=== PATIENT | male | born 1980 | race Caucasian/White ===

== ENCOUNTER 2020-02-09 13:21 | Inpatient (IN) | payer SELFPAY ==
[~2020-02-09] VITALS: Ht 175.3 cm; Wt 84.8 kg
[~2020-02-09 13:21] MED LIST: PHEN100C PO
[2020-02-09] MEDS ORDERED: IV NORMAL SALINE 1,000ML 1,000 ML IV ONE ×3 (13:30→15:15)
[2020-02-09 13:49] LABS: BASO # 0.1 x10^3/uL (0.0-0.2); BASO % 1 % (0-3); EOS # 0.1 x10^3/uL (0.0-0.7); EOS % 1 % (0-3); HEMATOCRIT 47.6 % (39.0-53.0); HEMOGLOBIN 16.4 g/dL (13.0-17.5); LYMPH # 3.2 x10^3/uL (1.0-4.8); LYMPH % 31 % (24-48); MEAN CORPUSCULAR HEMOGLOBIN 32 pg (25-35); MEAN CORPUSCULAR HGB CONC 35 g/dL (31-37); MEAN CORPUSCULAR VOLUME 91 fL (79-100); MONO # 0.9 x10^3/uL (0.0-1.1); MONO % 8 % (0-9); NEUT # 6.1 x10^3uL (1.8-7.7); NEUT % 59 % (31-73); PLATELET COUNT 208 x10^3/uL (140-400); RED BLOOD COUNT 5.22 x10^6/uL (4.30-5.70); RED CELL DISTRIBUTION WIDTH 13.3 % (11.5-14.5); WHITE BLOOD COUNT 10.3 x10^3/uL (4.0-11.0)
[2020-02-09 14:05] LABS: CALCIUM 9.2 mg/dL (8.5-10.1); CREATININE 1.2 mg/dL (0.7-1.3); GFR 67.8
[2020-02-09 14:07] LABS: BILIRUBIN,URINE NEG (NEG); CLARITY,URINE CLOUDY; COLOR,URINE YELLOW; GLUCOSE,URINE NEG (NEG)
[2020-02-09 14:08] LABS: AMORPHOUS SEDIMENT,UR PRESENT /HPF; BACTERIA,URINE 0 /HPF (0-FEW); NITRITE,URINE NEG (NEG); RBC,URINE 0 /HPF (0-2); SQUAMOUS EPITHELIAL CELL,UR FEW /LPF
[2020-02-09 14:15] LABS: ALBUMIN 4.2 g/dL (3.4-5.0); ALBUMIN/GLOBULIN RATIO 1.4 (1.0-1.7); TOTAL BILIRUBIN 1.7 mg/dL (0.2-1.0); TOTAL PROTEIN 7.1 g/dL (6.4-8.2)
[2020-02-09] MEDS ORDERED: ONDANSETRON PF 4 MG/2 ML VIAL. IVP ONE ×2 (14:30→15:00)
[2020-02-09] MEDS ORDERED: FAMOTIDINE 20 MG/2 ML VIAL IVP ONE (14:30)
--- NOTE | 2020-02-09 14:40 | EKG ---
[address] [address] Test Date: 2020-02-09 Test Time: 13:45:19 Pat Name: AURE BOYLE Department: Room: Gender: M Boat Motor Mechanic: : 1980 Requested By: GARRETT RICHARD Order Number: [id number] Reading MD: Joaquim Campbell Measurements Intervals [place] Rate: 69 P: 51 OK: 142 QRS: 44 QRSD: 90 T: 33 QT: 352 QTc: 378 Interpretive Statements SINUS RHYTHM NONSPECIFIC ST-T WAVE CHANGES. Electronically Signed On 02-09-2020 16:52:30 CDT by Joaquim Campbell
[2020-02-09 14:47] LABS: AMPHETAMINE/METHAMPHETAMINE NEG (NEG); BARBITURATES NEG (NEG); BENZODIAZEPINES NEG (NEG); CANNABINOIDS POS (NEG); COCAINE NEG (NEG); METHADONE NEG (NEG); OPIATES NEG (NEG); PHENCYCLIDINE NEG (NEG)
--- NOTE | 2020-02-09 14:55 | PHYS DOC ---
Past History Past Medical History: Anxiety, Bipolar, Seizure, Other Additional Past Medical Histor: Hep-C Past Surgical History: Cholecystectomy Smoking: Cigarettes Alcohol Use: None Drug Use: Marijuana General Adult EDM: Chief Complaint: SYNCOPE HPI: HPI: 39-year-old male presents with report of generalized malaise and episode of passing out upon arrival to the ER. Patient reports recent history of abdominal pain with associated nausea, vomiting, and diarrhea for which he was worked up at [facility] in [place]. Patient reports he was diagnosed with "irritable bowel syndrome ". Patient reports today he was in [place] for a "job "and has been working outside in the heat all day. Patient reports he thinks he is dehydrated. Denies fever or chills. Denies known sick contacts. Denies chest pain or shortness of breath. Denies known exposure to COVID-19. Review of Systems: Review of Systems: Constitutional: Denies fever or chills; reports malaise Eyes: Denies redness or eye pain HENT: Denies nasal congestion or sore throat Respiratory: Denies cough or shortness of breath Cardiovascular: Denies chest pain or palpitations GI: Reports abdominal pain, nausea, vomiting, and diarrhea : Denies dysuria or hematuria Musculoskeletal: Denies back pain or joint pain Integument: Denies rash or skin lesions Neurologic: Denies headache, focal weakness or sensory changes; reports syncopal episode Complete systems were reviewed and found to be within normal limits, except as documented in this note. Current Medications: Current Meds: Current Medications Medications (Trade) Dose Ordered Sig/Caroline Start Time Stop Time Status Last Admin Dose Admin Famotidine (Pepcid Vial) 20 mg 1X ONCE 02/09/20 14:30 02/09/20 14:31 DC 02/09/20 14:24 20 MG Ondansetron HCl (Zofran) 4 mg 1X ONCE 02/09/20 14:30 02/09/20 14:31 DC 02/09/20 14:24 4 MG Sodium Chloride 1,000 ml @ 1,000 mls/hr 1X ONCE 02/09/20 14:30 02/09/20 15:29 02/09/20 14:24 1,000 MLS/HR Allergies: Allergies: Allergies Coded Allergies Type Severity Reaction Last Updated Verified Penicillins Allergy Intermediate unknown 02/19/14 No Physical Exam: PE: Constitutional: Well developed, well nourished, no acute distress, non-toxic appearance HENT: Normocephalic, atraumatic, oropharynx dry Eyes: PERRL, EOMI, conjunctiva normal, no discharge, no horizontal nystagmus Neck: Normal range of motion, no cervical tenderness, supple Cardiovascular: Heart rate normal, regular rhythm Lungs & Thorax: Bilateral breath sounds clear to auscultation, no wheezing Abdomen: Soft, diffuse tenderness, no guarding/rebound tenderness Skin: Warm, dry, no erythema, no rash Back: No tenderness, no CVA tenderness Extremities: No tenderness, ROM intact, no edema Neurologic: Alert and oriented X 3, normal motor function, normal sensory function, no focal deficits noted Psychologic: Affect normal, judgment normal Current Patient Data: Labs: Laboratory Tests Test 02/09/20 13:14 02/09/20 13:33 Urine Collection Type Unknown Urine Color Yellow Urine Clarity Cloudy Urine pH 8.0 Urine Specific [place] 1.020 Urine Protein Neg (NEG-TRACE) Urine Glucose (UA) Neg mg/dL (NEG) Urine Ketones (Stick) 15 mg/dL (NEG) Urine Blood Neg (NEG) Urine Nitrite Neg (NEG) Urine Bilirubin Neg (NEG) Urine Urobilinogen Dipstick 2.0 mg/dL (0.2 mg/dL) Urine Leukocyte Esterase Neg (NEG) Urine RBC 0 /HPF (0-2) Urine WBC 1-4 /HPF (0-4) Urine Squamous Epithelial Cells Few /LPF Urine Amorphous Sediment Present /HPF Urine Bacteria 0 /HPF (0-FEW) Urine Mucus Slight /LPF Urine Opiates Screen Neg (NEG) Urine Methadone Screen Neg (NEG) Urine Barbiturates Neg (NEG) Urine Phencyclidine Screen Neg (NEG) Urine Amphetamine/Methamphetamine Neg (NEG) Urine Benzodiazepines Screen Neg (NEG) Urine Cocaine Screen Neg (NEG) Urine Cannabinoids Screen Pos (NEG) Urine Ethyl Alcohol Neg (NEG) White Blood Count 10.3 x10^3/uL (4.0-11.0) Red Blood Count 5.22 x10^6/uL (4.30-5.70) Hemoglobin 16.4 g/dL (13.0-17.5) Hematocrit 47.6 % (39.0-53.0) Mean Corpuscular Volume 91 fL (79-100) Mean Corpuscular Hemoglobin 32 pg (25-35) Mean Corpuscular Hemoglobin Concent 35 g/dL (31-37) Red Cell Distribution Width 13.3 % (11.5-14.5) Platelet Count 208 x10^3/uL (140-400) Neutrophils (%) (Auto) 59 % (31-73) Lymphocytes (%) (Auto) 31 % (24-48) Monocytes (%) (Auto) 8 % (0-9) Eosinophils (%) (Auto) 1 % (0-3) Basophils (%) (Auto) 1 % (0-3) Neutrophils # (Auto) 6.1 x10^3uL (1.8-7.7) Lymphocytes # (Auto) 3.2 x10^3/uL (1.0-4.8) Monocytes # (Auto) 0.9 x10^3/uL (0.0-1.1) Eosinophils # (Auto) 0.1 x10^3/uL (0.0-0.7) Basophils # (Auto) 0.1 x10^3/uL (0.0-0.2) Sodium Level 141 mmol/L (136-145) Potassium Level 4.0 mmol/L (3.5-5.1) Chloride Level 103 mmol/L (98-107) Carbon Dioxide Level 27 mmol/L (21-32) Anion Gap 11 (6-14) Blood Urea Nitrogen 14 mg/dL (8-26) Creatinine 1.2 mg/dL (0.7-1.3) Estimated GFR (Cockcroft-Gault) 67.8 BUN/Creatinine Ratio 12 (6-20) Glucose Level 94 mg/dL (70-99) Calcium Level 9.2 mg/dL (8.5-10.1) Magnesium Level 2.0 mg/dL (1.8-2.4) Total Bilirubin 1.7 mg/dL (0.2-1.0) H Aspartate Amino Transferase (AST) 49 U/L (15-37) H Alanine Aminotransferase (ALT) 165 U/L (16-63) H Alkaline Phosphatase 82 U/L (46-116) Creatine Kinase 155 U/L (39-308) Creatine Kinase MB (Mass) 1.6 ng/mL (0.0-3.6) Creatine Kinase MB Relative Index 1.0 % (0-4) Troponin I Quantitative < 0.017 ng/mL (0-0.055) Total Protein 7.1 g/dL (6.4-8.2) Albumin 4.2 g/dL (3.4-5.0) Albumin/Globulin Ratio 1.4 (1.0-1.7) Ethyl Alcohol Level < 10 mg/dL (0-10) Vital Signs: Vital Signs Date Time Temp Pulse Resp B/P (MAP) Pulse Ox O2 Delivery O2 Flow Rate FiO2 02/09/20 13:35 99.0 64 16 176/114 (134) 100 Room Air EKG: EKG: @1345 NSR 69bpm, NO ST elevation, QRS 90ms, QT/QTc 352/378ms, prominent t waves in precordial leads. Radiology/Procedures: Radiology/Procedures: PROCEDURE: CT HEAD AND CERVICAL SPINE [facility] Compliance Statement: One or more of the following individualized dose reduction techniques were utilized for this examination: 1. Automated exposure control 2. Adjustment of the mA and/or kV according to patient size 3. Use of iterative reconstruction technique CT HEAD AND CERVICAL SPINE WITHOUT CONTRAST History: Reason: syncope, head trauma, pain / Spl. Instructions: / History: Comparison: None. Procedure: Axial images are obtained of the head from the skull base through the vertex without IV contrast. Noncontrast helical CT of the cervical spine was performed. Axial, sagittal, and coronal reconstructions were obtained. Findings: The ventricles and sulci are normal for the patient's age. No mass-effect, midline shift, hemorrhage or obvious acute infarction is identified. Basilar cisterns are patent. Bone windows demonstrate no significant calvarial abnormality. The visualized paranasal sinuses are clear. Mastoid air cells are well aerated. There is no evidence of acute fracture or acute malalignment of the cervical spine. There are no perched or jumped facet joints. Probable bone island of the C5 spinous process. No significant disc space narrowing. There is mild degenerative endplate spurring. The vertebral body height and alignment are maintained. Visualized soft tissues of the neck demonstrate no significant abnormalities. The visualized lung apices are clear. IMPRESSION: 1. No acute intracranial abnormality. 2. No acute fracture of the cervical spine. Electronically signed by: Danielito Felix MD (02/09/2020 3:25 PM) [facility] Course & Med Decision Making: Course & Med Decision Making Pertinent Labs and Imaging studies reviewed. (See chart for details) Patient presents with report of syncopal episode after "working out in the heat" today. Patient reports also with N/V/D for which he was recently evaluated at [facility] and reportedly dx with "IBS". Patient reports continued N/V/D. EKG stable. Labs obtained and posted to chart. IVF bolusing x 2 L provided. Patient had gotten up from bed while in room (after being told to stay in bed and use call light if he needed anything) and subsequently "passed out" and woke up on the floor. Reports head contusion. Small left frontal contusion noted on exam. Patient at this point had received approximately 1 liter of IVF bolus. Concern for orthostatic hypotension. Orthostatic VS therefore held. CT head/cervical spine ordered. Upon patient coming back from CT, patient with witnessed seizure. Ativan given. CT head/cervical spine without acute process. Patient reports history of seizures for which he was previously prescribed Dilantin but stopped taking "all his meds" several months ago. Patient requiring admission for further evaluation and treatment. Discussed with Dr. Honeycutt (hospitalist) who is in agreement with admission. Requests administration of 1g Keppra q12 IVPB. Keppra initiated. Discussed findings and plan with patient, who acknowledges understanding and agreement. Giselle Disclaimer: Giselle Disclaimer: This electronic medical record was generated, in whole or in part, using a voice recognition dictation system. Departure Departure: Impression: Primary Impression: Breakthrough seizure Additional Impressions: Dehydration Noncompliance with medications Disposition: ADMITTED INPATIENT Admitting Physician: Hernán Honeycutt Condition: STABLE Referrals: RALPH CASON APRN (PCP) Justification of Admission: Justification of Admission: Justification of Admission Dx: Yes Comments: Breakthrough Seizure GARRETT RICHARD DO Feb 09, 2020 14:55
[2020-02-09] MEDS ORDERED: KETOROLAC 15 MG/ML VIAL. IVP ONE (15:00)
[2020-02-09] MEDS ORDERED: ONDANSETRON PF 4 MG/2 ML VIAL. IVP PRN (15:15)
--- NOTE | 2020-02-09 15:28 | RAD ---
PQRS Compliance Statement: One or more of the following individualized dose reduction techniques were utilized for this examination: 1. Automated exposure control 2. Adjustment of the mA and/or kV according to patient size 3. Use of iterative reconstruction technique CT HEAD AND CERVICAL SPINE WITHOUT CONTRAST History: Reason: syncope, head trauma, pain / Spl. Instructions: / History: Comparison: None. Procedure: Axial images are obtained of the head from the skull base through the vertex without IV contrast. Noncontrast helical CT of the cervical spine was performed. Axial, sagittal, and coronal reconstructions were obtained. Findings: The ventricles and sulci are normal for the patient's age. No mass-effect, midline shift, hemorrhage or obvious acute infarction is identified. Basilar cisterns are patent. Bone windows demonstrate no significant calvarial abnormality. The visualized paranasal sinuses are clear. Mastoid air cells are well aerated. There is no evidence of acute fracture or acute malalignment of the cervical spine. There are no perched or jumped facet joints. Probable bone island of the C5 spinous process. No significant disc space narrowing. There is mild degenerative endplate spurring. The vertebral body height and alignment are maintained. Visualized soft tissues of the neck demonstrate no significant abnormalities. The visualized lung apices are clear. IMPRESSION: 1. No acute intracranial abnormality. 2. No acute fracture of the cervical spine. Electronically signed by: Danielito Felix MD (02/09/2020 3:25 PM) [facility]
[2020-02-09 16:28] VITALS: BP 185/94
[2020-02-09] MEDS: IV NORMAL SALINE 1,000ML 1,000 ML IV SCH (16:45)
[2020-02-09] MEDS ORDERED: PANT40TA3 PO (17:01)
[2020-02-09] MEDS ORDERED: ONDA4TAB7 PO (17:01)
[2020-02-09] MEDS: ACETAMINOPHEN 500 MG TABLET PO PRN (18:11)
[2020-02-09 19:20] VITALS: BP 170/100
[2020-02-09 22:55] VITALS: BP 171/92
[2020-02-10] MEDS: IV NORMAL SALINE 1,000ML 1,000 ML IV SCH (00:01)
[2020-02-10] MEDS: ACETAMINOPHEN 500 MG TABLET PO PRN (00:18)
[2020-02-10 05:50] VITALS: BP 172/99
--- NOTE | 2020-02-10 08:59 | HP ---
ADMIT DATE: 02/09/2020 ATTENDING PHYSICIAN: Dr. Lira. CHIEF COMPLAINT: Syncopal episode. HISTORY OF PRESENT ILLNESS: The patient is a 39-year-old gentleman who works outside, episode of fatigue, malaise, and passing out at work. He works outside and has fluid losses from sweat. He was dehydrated. He was given fluids in the ED. While there, he supposedly had a witnessed seizure; in reality, this is a pseudoseizure. He has had these issues before. He was admitted for dehydration and symptomatic hypotension. PAST MEDICAL HISTORY: Significant for hepatitis C, bipolar disorder, anxiety and pseudoseizures . PAST SURGICAL HISTORY: Cholecystectomy. SOCIAL HISTORY: He does smoke cigarettes. He uses marijuana. There is a remote history of intravenous drug use, resulting in hepatitis C. PRESCRIPTION MEDICINES: None. ALLERGIES: He has allergies to PENICILLIN, WHICH CAUSES A RASH. FAMILY HISTORY: Noncontributory. REVIEW OF SYSTEMS: Significant for weakness, recent GI symptoms and evaluations at [facility] in [place]. All other systems reviewed and turned to be negative. PHYSICAL EXAMINATION: GENERAL: When I saw him, this is a pleasant, well-developed gentleman. VITAL SIGNS: Initial vital signs when I saw him, blood pressure came up to 170/100, pulse is 60 and regular, temperature is 98.4 degrees Fahrenheit, oxygen saturation 97% on room air. HEENT: Head is without trauma. Pupils are reactive. Sclerae nonicteric. Oropharynx is clear. NECK: Supple, no bruits identified. LUNGS: Clear. CARDIOVASCULAR: Showed regular heart tones. No gallops. Peripheral pulses are palpable and full. ABDOMEN: Soft, scaphoid, nontender, no organomegaly. Bowel sounds are normoactive. EXTREMITIES: Show no cyanosis or edema. NEUROLOGIC: Focally intact. PERTINENT LABORATORY DATA: The hemoglobin is 15.4 g/dL in a hemoconcentrated state, white count is 10,300. Electrolytes within normal range. Creatinine is 1.2, BUN 40 mg/dL, total bilirubin is 1.7 mg/dL. Transaminases slightly elevated with AST of 49 and ALT of 165, alkaline phosphatase is normal. Troponin was negative. The obligatory CT of the head following the seizure showed no acute intracranial process, no cervical spine pathology. ASSESSMENT: 1. A 39-year-old gentleman with dehydration due to volume loss from perspiration. 2. Symptomatic hypotension in the ED. 3. Near syncopal episode. 4. Pseudoseizures. 5. Polysubstance abuse. 6. Hepatitis C related to intravenous drug use. PLAN: 1. Admit for observation overnight. 2. IV hydration. 3. Advance diet as tolerated. 4. Nausea control. JERE LIRA MD DR: ADILENE/troy JOB#: [id number] / [id number]
--- NOTE | 2020-02-10 09:06 | DS ---
DATE OF DISCHARGE: 02/10/2020 ATTENDING PHYSICIAN: Dr. Lira. FINAL DISCHARGE DIAGNOSES: 1. Dehydration due to fluid losses. 2. Pseudoseizures. 3. Bipolar disorder. 4. Polysubstance abuse. 5. Hepatitis C. 6. Recent gastroenteritis. HISTORY AND PHYSICAL: This is a 39-year-old gentleman with fluid losses. He was admitted with near syncopal episode. He has been working outdoors with limited oral intake of fluids. In the ED, he had a witnessed pseudoseizure. CT of the head was unremarkable. He has a history of pseudoseizures in the past. PHYSICAL EXAMINATION: Please see the dictated note. PERTINENT LABORATORY AND X-RAY STUDIES: CBC and chemistry panel within normal range. Transaminases slightly elevated. Bilirubin 1.7 mg/dL. CT head and cervical spine showed no distinct pathology. COURSE IN THE HOSPITAL: The patient was admitted. He was started on IV hydration with boluses in the ER, he did well. By the next hospital day at the time I saw him, he was feeling better, he was hungry. Diet was advanced. He requested some information regarding treatment of hepatitis C. I gave him the telephone number of Dr. Green, oil and gas exploration technician in [place], where he lives. He requested narcotics, I told him no. The patient was then discharged in stable condition with explicit instructions and followup care. I encourage oral Gatorade to help with fluid retention with electrolytes. The patient was then discharged from our hospital in stable condition with explicit instructions and followup care. JERE LIRA MD DR: ADILENE/troy JOB#: [id number] / [id number]
== END 2020-02-10 09:45 | disposition home or self-care (01) | DRG 880 ==
LOC: ER 13:21 → EDSEX 13:21 → 1 SOUTH 16:00
PROVIDERS: ADMIT Hospitalist; ATTEND Hospitalist
DX: F44.5 Conversion disorder with seizures or convulsions (principal); E86.0 Dehydration; B19.20 Unspecified viral hepatitis C without hepatic coma; F12.90 Cannabis use, unspecified, uncomplicated; F17.210 Nicotine dependence, cigarettes, uncomplicated; K58.9 Irritable bowel syndrome, unspecified; I95.9 Hypotension, unspecified; F31.9 Bipolar disorder, unspecified; Z90.49 Acquired absence of other specified parts of digestive tract; Z88.0 Allergy status to penicillin; Z91.14 Patient's other noncompliance with medication regimen
CPT/HCPCS: 36415; 70450; 72125; 80053; 80307; 81001; 82553; 83605; 83735; 84484; 85025; 93005; 96361; 96374; 96375; 96376; G0480; J1885; J1953; J2060; J2405; J3490; 99285-25; J7030

== ENCOUNTER 2020-11-28 07:38 | Emergency (ER) | payer SELFPAY ==
[~2020-11-28] VITALS: Ht 180.3 cm; Wt 86.0 kg
[~2020-11-28 07:38] MED LIST changes: +ONDA4TAB7 PO; +PANT40TA3 PO
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
[2020-11-28] MEDS ORDERED: IV NORMAL SALINE 1,000ML 1,000 ML IV ONE (08:00)
[2020-11-28] MEDS ORDERED: FAMOTIDINE 20 MG/2 ML VIAL IVP ONE (08:00)
[2020-11-28] MEDS ORDERED: ONDANSETRON PF 4 MG/2 ML VIAL. IVP ONE ×2 (08:00→08:45)
[2020-11-28] MEDS ORDERED: IV NORMAL SALINE 1,000ML 1,000 ML IV SCH (08:00)
[2020-11-28 08:13] VITALS: BP 165/114
[2020-11-28 08:40] LABS: BASO # 0.1 x10^3/uL (0.0-0.2); BASO % 1 % (0-3); EOS # 0.1 x10^3/uL (0.0-0.7); EOS % 1 % (0-3); HEMATOCRIT 45.9 % (39.0-53.0); HEMOGLOBIN 15.7 g/dL (13.0-17.5); LYMPH # 1.7 x10^3/uL (1.0-4.8); LYMPH % 20 % (24-48); MEAN CORPUSCULAR HEMOGLOBIN 31 pg (25-35); MEAN CORPUSCULAR HGB CONC 34 g/dL (31-37); MEAN CORPUSCULAR VOLUME 90 fL (79-100); MONO # 0.7 x10^3/uL (0.0-1.1); MONO % 8 % (0-9); NEUT # 5.9 x10^3uL (1.8-7.7); NEUT % 70 % (31-73); PLATELET COUNT 178 x10^3/uL (140-400); RED CELL DISTRIBUTION WIDTH 13.1 % (11.5-14.5); WHITE BLOOD COUNT 8.5 x10^3/uL (4.0-11.0)
[2020-11-28] MEDS ORDERED: KETOROLAC 15 MG/ML VIAL. IVP ONE (08:45)
[2020-11-28 08:48] LABS: CALCIUM 8.7 mg/dL (8.5-10.1); CREATININE 0.9 mg/dL (0.7-1.3); GFR 93.9; POTASSIUM 3.4 mmol/L (3.5-5.1)
[2020-11-28 08:55] LABS: ALBUMIN 3.7 g/dL (3.4-5.0); ALBUMIN/GLOBULIN RATIO 1.1 (1.0-1.7); TOTAL BILIRUBIN 1.6 mg/dL (0.2-1.0)
[2020-11-28] MEDS ORDERED: HALOPERIDOL LACT 5 MG/ML VIAL. IVP ONE ×2 (09:00→12:30)
[2020-11-28] MEDS ORDERED: METOCLOPRAMIDE HCL 10 MG/2 ML VIAL. IVP ONE (09:00)
[2020-11-28] MEDS ORDERED: HYDROmorphone PF 1 MG/ML DISP.SYRIN ONE (09:41)
[2020-11-28] MEDS ORDERED: HYDROmorphone PF 1 MG/ML DISP.SYRIN IVP ONE ×2 (09:45→12:00)
--- NOTE | 2020-11-28 11:47 | RAD ---
XR ABDOMEN COMP ACUTE History: Reason: n/v / Spl. Instructions: / History: Technique: Upright and supine views of the abdomen. Comparison: February 19, 2014 Findings: No consolidation or pleural effusion. Normal heart size. No pneumothorax. Prior granulomatous disease within the chest. No pneumoperitoneum. Mildly prominent loop of small bowel within the left upper abdomen. No additional dilated small bowel loops. Air and stool scattered throughout the colon. Mild colonic stool burden. Impression: 1. Mildly prominent loop of small bowel within the left upper abdomen, may represent focal enteritis or ileus. If persistent clinical concern, recommend follow-up. Electronically signed by: Tanmay Kunz DO (11/28/2020 11:44 AM) [id number]
[2020-11-28] MEDS ORDERED: IOHEXOL 300 MG/ML 75 ML VIAL. IV ONE (12:00)
[2020-11-28] MEDS ORDERED: CONTRAST GIVEN. MC PRN (12:15)
[2020-11-28] MEDS ORDERED: IOHEXOL 350 MG/ML 100 ML VIAL. IV ONE (12:15)
[2020-11-28] MEDS ORDERED: PROCHLORPERAZINE 10 MG/2 ML VIAL. IV ONE (12:30)
--- NOTE | 2020-11-28 13:21 | RAD ---
INDICATION: Reason: NAUSEA VOMITING DIARRHEA / Spl. Instructions: / History: . COMPARISON: January 2014 TECHNIQUE: Axial CT images obtained through the abdomen and pelvis with contrast. One or more of the following individualized dose reduction techniques were utilized for this examinat ion: 1. Automated exposure control; 2. Adjustment of the mA and/or kV according to patient size; 3 . Use of iterative reconstruction technique. FINDINGS: Abdominal aorta is not aneurysmal. Scattered calcific atherosclerosis. Fat-containing umbilical hernia. Postcholecystectomy. No peripancreatic fluid collection. There are some prominent lymph nodes in the upper abdomen adjacent to the liver and pancreas. Splenic calcified granulomas. No hydronephrosis. Urinary bladder partially distended. Colonic diverticulosis. There is some wall thickening of the right side as well as transverse colon. Appendix is distended with air without adjacent inflammatory changes. Degenerative changes of spine. IMPRESSION: * Wall thickening of the colon is identified. Would correlate with symptoms since causes such as col itis could have this appearance. * There are some mildly prominent lymph nodes in the upper abdomen. Most commonly reactive in a jami ent of this age. Electronically signed by: Ish Mendoza MD (11/28/2020 1:19 PM) [id number]
[2020-11-28] MEDS ORDERED: ONDA4TAB12 PO (13:57)
== END 2020-11-28 14:00 | disposition home or self-care (01) ==
LOC: ER 07:38
DX: K52.9 Noninfective gastroenteritis and colitis, unspecified (principal); R74.8 Abnormal levels of other serum enzymes; F15.10 Other stimulant abuse, uncomplicated; F31.9 Bipolar disorder, unspecified; F17.210 Nicotine dependence, cigarettes, uncomplicated; F43.10 Post-traumatic stress disorder, unspecified; Z90.49 Acquired absence of other specified parts of digestive tract
CPT/HCPCS: 36415; 74022; 74177; 80053; 82550; 83690; 85025; 96361; 96374; 96375; 96376; 99285; G0480; J1170; J1630; J1885; J2405; J2765; J3490; J7030; Q9967

== ENCOUNTER 2021-09-14 10:31 | Emergency (ER) | payer SELFPAY ==
[~2021-09-14] VITALS: Ht 180.3 cm; Wt 86.0 kg
[~2021-09-14 10:31] MED LIST changes: +ONDA4TAB12 PO
[2021-09-14 10:45] VITALS: BP 130/85
[2021-09-14] MEDS ORDERED: cefTRIAXone IM 500 MG VIAL. IM ONE (10:45)
[2021-09-14] MEDS ORDERED: DOXYCYCLINE HYCLATE 100 MG TABLET PO ONE (10:45)
--- NOTE | 2021-09-14 10:51 | PHYS DOC ---
Past History Past Medical History: Anxiety Additional Past Medical Histor: Hep-C (MANDI SANDRA APRN) Past Surgical History: Cholecystectomy (MANDI SANDRA APRN) Smoking: Cigarettes Alcohol Use: None Drug Use: Marijuana (MANDI SANDRA APRN) General Adult EDM: Chief Complaint: SEXUALLY TRANSMITTED DISEASE HPI: HPI: Patient is a 41-year-old male who presents to the emergency department today for an STD check. Patient reports that his sexual partner notified him that she was positive for gonorrhea and chlamydia and received treatment. Patient reports that he has been having white urethral discharge and pain with urination for the last week. He denies any fevers, nausea, vomiting. (MANDI SANDRA APRN) Review of Systems: Review of Systems: Constitutional: negative unless reported in HPI Eyes: negative unless reported in HPI HENT: negative unless reported in HPI Respiratory: negative unless reported in HPI Cardiovascular: negative unless reported in HPI GI: negative unless reported in HPI : negative unless reported in HPI Musculoskeletal: negative unless reported in HPI Integument: negative unless reported in HPI Neurologic: negative unless reported in HPI Endocrine: negative unless reported in HPI Lymphatic: negative unless reported in HPI Psychiatric: negative unless reported in HPI (MANDI SANDRA APRN) Allergies: Allergies: Allergies Coded Allergies Type Severity Reaction Last Updated Verified Penicillins Allergy Intermediate unknown 02/19/14 No (MANDI SANDRA APRN) Physical Exam: PE: Constitutional: Well developed, well nourished, no acute distress, non-toxic appearance. [] HENT: Normocephalic, atraumatic, bilateral external ears normal, oropharynx moist, no oral exudates, nose normal. [] Eyes: PERRL, EOMI, conjunctiva normal, no discharge. [] Neck: Normal range of motion, no stridor Cardiovascular: Normal peripheral perfusion Lungs & Thorax: Normal work of breathing, no tachypnea Abdomen: Soft and flat Skin: Warm, dry, no erythema, no rash. [] Back: Normal range of motion Extremities: No tenderness, no cyanosis, no clubbing, ROM intact, no edema. [] Neurologic: Alert and oriented X 3, normal motor function, normal sensory function, no focal deficits noted. [] Psychologic: Affect normal, judgement normal, mood normal. [] (MANDI SANDRA APRN) Current Patient Data: Labs: Laboratory Tests Test 09/14/21 10:55 Urine Collection Type Unknown Urine Color Yellow Urine Clarity Hazy Urine pH 6.5 Urine Specific Valdez >=1.030 Urine Protein Neg Urine Glucose (UA) Neg mg/dL Urine Ketones (Stick) Neg mg/dL Urine Blood Neg Urine Nitrite Neg Urine Bilirubin Neg Urine Urobilinogen Dipstick 1.0 mg/dL Urine Leukocyte Esterase Trace Urine RBC 1-2 /HPF Urine WBC 20-40 /HPF Urine Squamous Epithelial Cells Few /LPF Urine Bacteria 0 /HPF Urine Mucus Mod /LPF Current Medications Medications (Trade) Dose Ordered Sig/Caroline Route PRN Reason Start Time Stop Time Status Last Admin Dose Admin Ceftriaxone Sodium (Rocephin Im) 500 mg 1X ONCE IM 09/14/21 10:45 09/14/21 10:47 DC 09/14/21 10:45 Doxycycline Hyclate (Vibra-Tab) 100 mg 1X ONCE PO 09/14/21 10:45 09/14/21 10:47 DC 09/14/21 10:45 (MANDI SANDRA APRN) EKG: EKG: [] (MANDI SANDRA APRN) Radiology/Procedures: Radiology/Procedures: [] (MANDI SANDRA APRN) Heart Score: C/O Chest Pain: N/A Risk Factors: Risk Factors: DM, Current or recent (<one month) smoker, HTN, HLP, family history of CAD, obesity. Risk Scores: Score 0 - 3: 2.5% MACE over next 6 weeks - Discharge Home Score 4 - 6: 20.3% MACE over next 6 weeks - Admit for Clinical Observation Score 7 - 10: 72.7% MACE over next 6 weeks - Early Invasive Strategies (MANDI SANDAR APRN) Course & Med Decision Making: Course & Med Decision Making Pertinent Labs and Imaging studies reviewed. (See chart for details) [] Patient presents to the emergency department for 1 week history of urethral discharge and pain with urination. Patient reports that he was notified by a sexual partner that she was positive for gonorrhea and chlamydia. Patient's will be tested for gonorrhea and chlamydia and will be notified of those results when they become available in approximately 1 to 2 days. Urinalysis was performed to rule out a urinary tract infection and this showed a urinary tract infection and he will be treated with an antibiotic. Patient will be prophylactically treated for gonorrhea and chlamydia per request. He reports rash to pcn. Patient eloped from the emergency department prior to receiving his discharge instructions. I contacted patient and notified him of his results and sent in prescriptions for him. (MANDI SANDRA APRN) Course & Med Decision Making Did not see or evaluate patient. Did not discuss patient with DITCH WORKER. Agree with DITCH WORKER's work-up and disposition per note. (CINDY SPENCE MD) Dragon Disclaimer: Dragon Disclaimer: This electronic medical record was generated, in whole or in part, using a voice recognition dictation system. (MANDI SANDRA APRN) Departure Departure: Impression: Primary Impression: Encounter for screening for infections with a predominantly sexual mode of transmission Additional Impression: Urinary tract infection Qualified Codes: N30.00 - Acute cystitis without hematuria Disposition: HOME / SELF CARE / HOMELESS Condition: GOOD Referrals: PCP,NO (PCP) Patient Instructions: Sexually Transmitted Disease, Urinary Tract Infection, [id number] Additional Instructions: You were seen in the emergency department today for an STD check. We tested you for gonorrhea and chlamydia in the emergency department and you will receive your results via telephone in approximately 1 to 2 days. We also performed a urinalysis to rule out a urinary tract infection and this showed a urinary tract infection which is also treated with an antibiotic.. You chose to be prophylactically treated for STDs, you received a shot in the emergency departme and you will be discharged home with an antibiotic to take. Please start and finish the antibiotic completely. Avoid any sexual intercourse for at least 10 days. Please notify all of your sexual partners of your results when they become available. If you require any additional comprehensive STD testing please follow-up with the health department. Return to the emergency department if you develop abdominal pain, intractable nausea or vomiting, high fevers refractory to treatment, shortness of breath or difficulty breathing. Scripts Cephalexin (KEFLEX) 500 Mg Capsule 1 CAP PO QID for infection for 7 Days, #28 CAP 0 Refills Prov: MANDI SANDRA APRN 09/14/21 Doxycycline Hyclate (DOXYCYCLINE HYCLATE) 100 Mg Tablet 1 TAB PO BID for infection for 7 Days, #14 TAB 0 Refills Prov: MANDI SANDRA APRN 09/14/21 MANDI SANDRA APRN Sep 14, 2021 10:51 CINDY SPENCE MD Sep 14, 2021 12:54
[2021-09-14 12:00] LABS: BACTERIA,URINE 0 /HPF (0-FEW); BILIRUBIN,URINE NEG (NEG); CLARITY,URINE HAZY; COLOR,URINE YELLOW; GLUCOSE,URINE NEG (NEG); NITRITE,URINE NEG (NEG); SQUAMOUS EPITHELIAL CELL,UR FEW /LPF; WBC,URINE 20-40 /HPF (0-4)
[2021-09-14] MEDS ORDERED: DOXY100T PO (12:07)
[2021-09-14] MEDS ORDERED: CEPH500C PO (12:07)
== END 2021-09-14 11:10 | disposition home or self-care (01) ==
LOC: ER 10:31
DX: Z20.2 Contact with and (suspected) exposure to infections with a predominantly sexual mode of transmission (principal); N30.00 Acute cystitis without hematuria; F17.210 Nicotine dependence, cigarettes, uncomplicated; Z88.0 Allergy status to penicillin
CPT/HCPCS: 36415; 81001; 87086; 87491; 87591; 96372; 99283; J0696

== ENCOUNTER 2021-11-12 18:10 | Emergency (ER) | payer SELFPAY ==
[~2021-11-12] VITALS: Ht 180.3 cm; Wt 83.2 kg
[~2021-11-12 18:10] MED LIST changes: +CEPH500C PO; +DOXY100T PO
[2021-11-12 18:20] VITALS: BP 127/76
--- NOTE | 2021-11-12 18:52 | PHYS DOC ---
Past History Past Medical History: Anxiety Additional Past Medical Histor: Hep-C (MANDI SANDRA APRN) Past Surgical History: Cholecystectomy (MANDI SANDRA APRN) Smoking: Cigarettes Alcohol Use: None Drug Use: Marijuana (MANDI SANDRA APRN) General Adult EDM: Chief Complaint: TOE PROBLEM HPI: HPI: Patient is a 41-year-old male who presents to the emergency department for left fifth finger and right great toe pain. Patient reports that he was moving a metal rosalio when his left fifth anger got pinched in the metal and he kicked the wall with his right foot 1 hour prior to arrival. Patient reports that he proceeded to finish moving. He rates his pain 8 out of 10. No treatment prior to arrival. He denies any decreased sensation in his extremities but reports decreased range of motion of his right great toe. (MANDI SANDRA APRN) Review of Systems: Review of Systems: Musculoskeletal: See HPI Integument: See HPI Neurologic: See HPI (MANDI SANDRA APRN) Allergies: Allergies: Allergies Coded Allergies Type Severity Reaction Last Updated Verified Penicillins Allergy Intermediate unknown 02/19/14 No (MANDI SANDRA APRN) Physical Exam: PE: Constitutional: Well developed, well nourished, no acute distress, non-toxic appearance. [] HENT: Normocephalic, atraumatic, bilateral external ears normal, oropharynx moist, no oral exudates, nose normal. [] Eyes: PERRL, EOMI, conjunctiva normal, no discharge. [] Neck: Normal range of motion, no stridor Cardiovascular: Normal peripheral perfusion Lungs & Thorax: Normal work of breathing, no tachypnea Abdomen: Soft and flat Skin: Warm, dry, no erythema, no rash. [] Back: Normal range of motion Extremities: No tenderness, no cyanosis, no clubbing, ROM intact, no edema. [] Left fifth finger: Small abrasion noted to dorsal aspect of left fifth finger, range of motion intact, neuro intact, no obvious deformity, no crepitus. Right great toe: Ecchymosis and swelling noted to right great toe, pain with palpat ion, neuro intact, limited flexion due to pain Neurologic: Alert and oriented X 3, normal motor function, normal sensory function, no focal deficits noted. [] Psychologic: Affect normal, judgement normal, mood normal. [] (MANDI SANDRA APRN) EKG: EKG: [] (MANDI SANDRA APRN) Radiology/Procedures: Radiology/Procedures: []PROCEDURE: TOES RIGHT XR RT TOE 2+ VIEWS Clinical Indication: Reason: Right great toe injury with pain and swelling / Spl. Instructions: / History: Comparison: None. Findings: There is acute traumatic nondisplaced, incomplete fracture of the medial distal portion of the proximal phalanx of the great toe. The fracture line is oblique longitudinal, there is intra-articular extension into the interphalangeal joint. Joint spaces are maintained. The mineralization is normal. No soft tissue swelling is appreciated. IMPRESSION: Acute traumatic nondisplaced fracture of the proximal phalanx of the great toe. Electronically signed by: Danielito Felix MD (11/12/2021 7:02 PM) [facility]Mary DICTATED AND SIGNED BY: DANIELITO FELIX MD DATE: 11/12/211899 CC: MANDI SANDRA APRN; PCP,NO ~ REASON: Left 5th digit injury, pain with swelling PROCEDURE: FINGER(S) LEFT Exam: Left finger 3 views INDICATION: Left fifth digit injury TECHNIQUE: Frontal view of the left hand with oblique and lateral views of the fifth digit Comparisons: None FINDINGS: Bone mineralization is normal. No acute or healed fractures. Soft tissues are unremarkable. Joint spaces are well-maintained. IMPRESSION: No acute osseous abnormality. Electronically signed by: Delfina Valencia MD (11/12/2021 7:02 PM) [facility] DICTATED AND SIGNED BY: DELFINA VALENCIA MD DATE: 11/12/211899 CC: MANDI SANDRA APRN; PCP,NO ~ (MANDI SANDRA APRN) Heart Score: C/O Chest Pain: N/A Risk Factors: Risk Factors: DM, Current or recent (<one month) smoker, HTN, HLP, family history of CAD, obesity. Risk Scores: Score 0 - 3: 2.5% MACE over next 6 weeks - Discharge Home Score 4 - 6: 20.3% MACE over next 6 weeks - Admit for Clinical Observation Score 7 - 10: 72.7% MACE over next 6 weeks - Early Invasive Strategies (MANDI SANDRA APRN) Course & Med Decision Making: Course & Med Decision Making Pertinent Labs and Imaging studies reviewed. (See chart for details) [] Patient presents to the emergency department for left fifth finger pain after pinching in a metal cart and right great toe pain after kicking a wall. Sis ging was performed of these areas. Finger was not fractured however, there was a proximal phalanx fracture of the right great toe. Toe was cl taped and placed in a postop shoe. Patient advised to take anti-inflammatory medications and apply ice. Neurovascularly intact. He was given follow-up information for orthopedic doctor. I discussed with patient all findings and diagnostic testing as well as the need to follow-up with PCP for further evaluation and treatment or return to the ER if any new or worsening symptoms. Strict return precautions were also discussed at length. Patient voiced understanding and agreement with the plan. Patient is hemodynamically stable at the time of disposition. (MANDI SANDRA APRN) Dragon Disclaimer: Dragon Disclaimer: This electronic medical record was generated, in whole or in part, using a voice recognition dictation system. (MANDI SANDRA APRN) Departure Departure: Impression: Primary Impression: Toe fracture Qualified Codes: S92.414A - Nondisplaced fracture of proximal phalanx of right great toe, initial encounter for closed fracture Disposition: HOME / SELF CARE / HOMELESS Condition: GOOD Referrals: PCP,BOLA (PCP) ALEXANDER MAGANA II, MD Patient Instructions: Toe Fracture Additional Instructions: You are seen in the emergency department for finger and toe injury. You have a fracture of your right great toe. This was cl taped and you were placed in a postop shoe. Continue to cl tape your toe and wear the postop shoe for support. You can take Tylenol and ibuprofen for pain at home. You can also apply ice. Follow-up with your primary care provider tomorrow regarding your ER visit, you are also being discharged home with information for orthopedic doctor. Return to the emergency department if you develop worsening of your pain, decreased sensation to your toe, inability to bear weight or walk, coolness or blue discoloration to your toe. Dragon Disclaimer This chart was dictated in whole or in part using Voice Recognition software in a busy, high-work load, and often noisy Emergency Department environment. It may contain unintended and wholly unrecognized errors or omissions. (MICKEY LINCOLN MD) Dragon Disclaimer This chart was dictated in whole or in part using Voice Recognition software in a busy, high-work load, and often noisy Emergency Department environment. It may contain unintended and wholly unrecognized errors or omissions. (MICKEY LINCOLN MD) Attending Signature Attending Signature I have participated in the care of this patient and I have reviewed and agree with all pertinent clinical information above including history, exam, and recommendations. (MICKEY LINCOLN MD) MANDI SANDRA APRN Nov 12, 2021 18:52 MICKEY LINCOLN MD Nov 14, 2021 04:10
--- NOTE | 2021-11-12 19:04 | RAD ---
Exam: Left finger 3 views INDICATION: Left fifth digit injury TECHNIQUE: Frontal view of the left hand with oblique and lateral views of the fifth digit Comparisons: None FINDINGS: Bone mineralization is normal. No acute or healed fractures. Soft tissues are unremarkable. Joint spa shyanne are well-maintained. IMPRESSION: No acute osseous abnormality. Electronically signed by: Delfina Carpenter MD (11/12/2021 7:02 PM) [facility]
--- NOTE | 2021-11-12 19:04 | RAD ---
XR RT TOE 2+ VIEWS Clinical Indication: Reason: Right great toe injury with pain and swelling / Spl. Instructions: / Ct story: Comparison: None. Findings: There is acute traumatic nondisplaced, incomplete fracture of the medial distal portion of the proxim al phalanx of the great toe. The fracture line is oblique longitudinal, there is intra-articular exte nsion into the interphalangeal joint. Joint spaces are maintained. The mineralization is normal. No s oft tissue swelling is appreciated. IMPRESSION: Acute traumatic nondisplaced fracture of the proximal phalanx of the great toe. Electronically signed by: Danielito Felxi MD (11/12/2021 7:02 PM) [facility]
[2021-11-12] MEDS ORDERED: HYDROcodone/APAP 5/325MG 1 TAB TABLET PO ONE (19:15)
== END 2021-11-12 19:46 | disposition home or self-care (01) ==
LOC: ER 18:10
DX: S92.414A Nondisplaced fracture of proximal phalanx of right great toe, initial encounter for closed fracture (principal); S60.417A Abrasion of left little finger, initial encounter; F17.210 Nicotine dependence, cigarettes, uncomplicated; Z88.0 Allergy status to penicillin; W23.0XXA Caught, crushed, jammed, or pinched between moving objects, initial encounter; Y93.89 Activity, other specified; Y92.89 Other specified places as the place of occurrence of the external cause; Y99.8 Other external cause status
CPT/HCPCS: 73140; 73660; 99284